=== PATIENT | male | born 1985 | race African-American/Black ===

== ENCOUNTER 2022-09-22 09:03 | Emergency (ER) | payer OTHER, SELFPAY ==
[2022-09-22 09:18] VITALS: PULSE 86; O2SAT 100
[2022-09-22 09:20] VITALS: BP 124/74; PULSE 82; RESP 16; TEMP 36.7; O2SAT 100; BMI 30.2
[2022-09-22 09:30] VITALS: BP 121/76; PULSE 84; O2SAT 100
[2022-09-22 10:00] VITALS: BP 122/60; PULSE 79; O2SAT 100
[2022-09-22 10:12] LABS: Add Manual Diff / Slide Review NO; Basophils Absolute Auto 0 /uL (0-100); Basophils Percent Auto 0.4 % (0-2); Eosinophils Absolute Auto 100 /uL (0-450); Eosinophils Percent Auto 1.1 % (2-4); Hematocrit 26.6 % (41-53); Hemoglobin 9.4 g/dL (13.5-17.5); Lymphocytes Absolute Auto 3100 /uL (1100-4500); Lymphocytes Percent Auto 31.9 % (25-40); Mean Corpuscular HGB Conc 35.4 % (30-36); Mean Corpuscular Volume 84.7 fL (80-100); Monocytes Absolute Auto 700 /uL (0-900); Monocytes Percent Auto 6.9 % (3-14); Neutrophils Absolute Auto 5800 /uL (1500-7000); Neutrophils Percent Auto 59.7 % (50-75); Platelet Count 188 X10^3/uL (150-400); Red Blood Cell Count 3.15 X10^6/uL (4.5-5.9); Red Cell Distribution Width 13.9 % (11.6-14.8); White Blood Cell Count 9.8 X10^3/uL (4.5-11.0)
[2022-09-22 10:17] LABS: INR 1.1 (0.9-1.3); Prothrombin Time 12.5 SECONDS (10.1-12.7)
[2022-09-22 10:20] LABS: PTT Partial Thromboplastin Tim 24 SECONDS (26-36)
[2022-09-22 10:22] LABS: Alanine Aminotransferase 32 IU/L (<50); Albumin 4.2 g/dL (3.5-5.0); Albumin Globulin Ratio 1.6 (1.0-2.8); Alkaline Phosphatase 39 U/L (38-126); Aspartate Aminotransferase 39 IU/L (17-59); BUN Creatinine Ratio 16.5 (6-22); Bilirubin Total 0.9 mg/dL (0.2-1.3); Blood Urea Nitrogen 14 mg/dL (9-20); Calcium 9.1 mg/dL (8.4-10.2); Carbon Dioxide 28 mmol/L (22-32); Chloride 101 mmol/L (98-107); Estimated Glomerular Filt Rate > 60 mL/min (>60); Globulin 2.7 g/dL (1.7-4.1); Glucose 98 mg/dL (70-100); HEMOLYSIS < 15 (0-50); Potassium 3.7 mmol/L (3.4-5.1); Sodium 136 mmol/L (137-145); Total Protein 6.9 g/dL (6.3-8.2)
[2022-09-22 10:30] VITALS: BP 110/65; PULSE 83; O2SAT 100
[2022-09-22] MEDS: PANTOPRAZOLE 40 MG VIAL 80 MG IV (10:37)
--- NOTE | 2022-09-22 11:07 | ED.GIBLEED ---
HPI - GI Bleed General Chief complaint: GI Bleed Stated complaint: gi bleed Time Seen by Provider: 09/22/22 11:07 Source: patient Mode of arrival: Ambulatory Limitations: no limitations History of Present Illness HPI Narrative: This is a 37-year-old male with no past medical history is had a prior hernia repair in 2016. Patient presents with complaint of black formed stools for the past 3 days. He states he is had 4 stools total. Patient states he has not had any prior episodes similar to this in the past. He denies fevers or chills. He felt a little lightheaded yesterday. He states not today. No nausea no vomiting, no abdominal back or flank pain. He denies any diarrheal stools. No bloody stools. He states stools are black. He denies any abdominal pain. Patient states he rarely takes ibuprofen, he does take a multivitamin without iron. He does not take aspirin or other blood thinners. He denies other NSAIDs. Denies any other past medical issues. States only hernia repair in 2016 as his only surgery. No prior EGD or colonoscopy. Tobacco, occasional alcohol, no illicit. Patient is seen at the [facility] [place], and received primary care through them. Patient states he is never been told that he is anemic in the past. Patient has a photo was his formed stools that is clearly black. He denies any Pepto Bismol or other qviv-zto-ecxidfy medications. Related Data Previous Rx's Medication Instructions Recorded esomeprazole magnesium 40 mg 40 mg PO Q24H 42 days #42 caps 09/22/22 capsule,delayed release (Nexium) Allergies Allergy/AdvReac Type Severity Reaction Status Date / Time No Known Drug Allergies Allergy Verified 09/22/22 09:20 Review of Systems Review of Systems ROS Unobtainable: All systems reviewed & are unremarkable except as noted in HPI and below Patient History Social History Smoking Status: Never smoker Smoking Status: Never smoker alcohol intake frequency: holidays/special occasions only Substance Use Type: does not use Exam Narrative Exam Narrative: GENERAL: Alert and oriented x three, male in mild distress. HEENT: Head normocephalic, atraumatic, EOMI, pupils reactive, no scleral icterus, face symmetric, moist mucous membranes NECK: Supple, full range of motion CARDIOVASCULAR: Regular rate and rhythm without murmurs, rubs or gallops. RESPIRATORY: Breath sounds equal bilaterally, no wheezes rales or rhonchi. ABDOMEN: Soft, nontender. Normoactive bowel sounds all 4 quadrants. No guarding or rebound, rigidity, no mass : No CVA tenderness EXTREMITIES: Normal range of motion, no clubbing or edema. Neurovascularly intact NEUROLOGICAL: Cranial nerves II through XII grossly intact. Moving all extremities SKIN: Warm, dry, no petechiae, no rashes or lesions. Initial Vital Signs Initial Vital Signs: Vital Signs Pulse Rate 86 09/22/22 09:18 Pulse Oximetry 100 09/22/22 09:18 Course Orders Ordered: ED Orders 09/22/22 09:23 EKG-12 Lead Stat 09/22/22 09:50 Complete Blood Count AUTO DIFF Stat Comprehensive Metabolic Panel Stat PTT Partial Thromboplastin Parmjit Stat Prothrombin Time INR Stat Type and Screen Stat 09/22/22 11:46 Consult to General Surgery Stat Discontinued Medications Ondansetron HCl (Ondansetron 4 Mg/2 Ml Inj) 4 mg IV NOW PRN PRN Reason: Nausea And Vomiting Ondansetron HCl (Ondansetron 4 Mg Odt) 4 mg SL NOW PRN PRN Reason: Nausea And Vomiting Pantoprazole Sodium (Pantoprazole 40 Mg Vial) 80 mg IV NOW ONE Stop: 09/22/22 09:24 Last Admin: 09/22/22 10:37 Dose: 80 mg Documented By: NR Vital Signs Vital signs: Vital Signs - 8 hr 09/22/22 10:30 09/22/22 10:30 09/22/22 11:49 Pulse Rate 83 Respiratory Rate Blood Pressure 110/65 110/64 Pulse Oximetry 100 Oxygen Delivery Method 09/22/22 11:49 Pulse Rate 80 Respiratory Rate 16 Blood Pressure Pulse Oximetry 100 Oxygen Delivery Method Room Air MDM - GI Bleed Lab Data 09/22/22 09:50 09/22/22 09:50 Labs: Lab Results 09/22/22 09/22/22 09/22/22 Range/Units 09:50 09:50 09:50 WBC 9.8 (4.5-11.0) X10^3/uL RBC 3.15 L (4.5-5.9) X10^6/uL Hgb 9.4 L (13.5-17.5) g/dL Hct 26.6 L (41-53) % MCV 84.7 (80-100) fL MCH 30.0 (26-34) PG MCHC 35.4 (30-36) % RDW 13.9 (11.6-14.8) % Plt Count 188 (150-400) X10^3/uL Neut % (Auto) 59.7 (50-75) % Lymph % (Auto) 31.9 (25-40) % Upson % (Auto) 6.9 (3-14) % Eos % (Auto) 1.1 L (2-4) % Baso % (Auto) 0.4 (0-2) % Neut # (Auto) 5800 (6773-8531) /uL Lymph # (Auto) 3100 (1729-4731) /uL Upson # (Auto) 700 (0-900) /uL Eos # (Auto) 100 (0-450) /uL Baso # (Auto) 0 (0-100) /uL PT 12.5 (10.1-12.7) SECONDS INR 1.1 (0.9-1.3) APTT 24 L (26-36) SECONDS Sodium 136 L (137-145) mmol/L Potassium 3.7 (3.4-5.1) mmol/L Chloride 101 (98-107) mmol/L Carbon Dioxide 28 (22-32) mmol/L BUN 14 (9-20) mg/dL Creatinine 0.85 (0.66-1.25) mg/dL Estimated GFR > 60 (>60) mL/min BUN/Creatinine Ratio 16.5 (6-22) Glucose 98 (70-100) mg/dL Calcium 9.1 (8.4-10.2) mg/dL Total Bilirubin 0.9 (0.2-1.3) mg/dL AST 39 (17-59) IU/L ALT 32 (<50) IU/L Alkaline Phosphatase 39 (38-126) U/L Total Protein 6.9 (6.3-8.2) g/dL Albumin 4.2 (3.5-5.0) g/dL Globulin 2.7 (1.7-4.1) g/dL Albumin/Globulin Ratio 1.6 (1.0-2.8) Blood Type Antibody Screen 09/22/22 Range/Units 09:50 WBC (4.5-11.0) X10^3/uL RBC (4.5-5.9) X10^6/uL Hgb (13.5-17.5) g/dL Hct (41-53) % MCV (80-100) fL MCH (26-34) PG MCHC (30-36) % RDW (11.6-14.8) % Plt Count (150-400) X10^3/uL Neut % (Auto) (50-75) % Lymph % (Auto) (25-40) % Upson % (Auto) (3-14) % Eos % (Auto) (2-4) % Baso % (Auto) (0-2) % Neut # (Auto) (6050-1363) /uL Lymph # (Auto) (6541-1661) /uL Upson # (Auto) (0-900) /uL Eos # (Auto) (0-450) /uL Baso # (Auto) (0-100) /uL PT (10.1-12.7) SECONDS INR (0.9-1.3) APTT (26-36) SECONDS Sodium (137-145) mmol/L Potassium (3.4-5.1) mmol/L Chloride (98-107) mmol/L Carbon Dioxide (22-32) mmol/L BUN (9-20) mg/dL Creatinine (0.66-1.25) mg/dL Estimated GFR (>60) mL/min BUN/Creatinine Ratio (6-22) Glucose (70-100) mg/dL Calcium (8.4-10.2) mg/dL Total Bilirubin (0.2-1.3) mg/dL AST (17-59) IU/L ALT (<50) IU/L Alkaline Phosphatase (38-126) U/L Total Protein (6.3-8.2) g/dL Albumin (3.5-5.0) g/dL Globulin (1.7-4.1) g/dL Albumin/Globulin Ratio (1.0-2.8) Blood Type A Negative Antibody Screen Negative Urine Dip Bedside Urine Glucose Negative Bedside Urine Bilirubin - Negative Bedside Urine Ketone - Negative Urine Specific Britton 1.005 Bedside Urine Occult Blood - Negative Bedside Urine pH 7.5 Bedside Urine Protein - Negative Bedside Urine Urobilinogen - Negative Bedside Urine Nitrite - Negative Bedside Urine Leukocytes - Negative Esterase ECG Data Attestation: I personally reviewed and interpreted this ECG as follows: Prior ECG tracings: not available for review Interpretation: Normal sinus rhythm rate of 78 AK 160, QRS 82 and QTC 433. No acute ST elevation appreciated. Nonspecific. MDM Narrative Medical decision making narrative: This is a 37-year-old male who presents with well formed black stools for the past 4 days. Patient labs do show anemia with a hemoglobin of 9.4 and a crit of 26, it is not microcytic, patient's platelets are normal, normal white cells. BUN is not elevated renal function is normal with normal LFTs and electrolytes. Negative point of care urine. Patient's vitals are stable he is standing ambulating without issue. [place] appropriate for discharge home but with close follow-up. Plan to start PPI with Nexium once daily, add iron to his multivitamin. Patient is to call to set up EGD and if necessary colonoscopy. I spoke with Dr. Doshi with General surgery, who is happy to see see the patient. Discharge Plan Departure Patient Disposition: Home Clinical Impression: GI bleed, Anemia Instructions: Gastrointestinal Bleeding Activity Restrictions/Additional Instructions: Please follow-up for recheck. Your blood does show anemia today. Talk with your physician to have your levels rechecked in the next week. Your hemoglobin today is 9.4 Please call general surgery today or 1st thing in the morning to set up follow-up for EGD for GI bleeding/melena or black stools. Avoid NSAIDs such as ibuprofen, naproxen, Alleve and aspirin until cleared by your physician Also recommend they follow up for EGD and/or colonoscopy to evaluate for potential source of bleeding. Please add iron to your multivitamin. Take Nexium 1 tablet daily for at least 6 weeks. Prescription sent to [facility] in [place] Please return for fevers, lightheadedness or passing out, new abdominal back or flank pain, vomiting, persistent black or bloody stools, lightheadedness or passing out or other new or concerning changes. Prescriptions: New esomeprazole magnesium [Nexium] 40 mg capsule,delayed release(DR/EC) 40 mg PO Q24H 42 Days Qty: 42 0RF Referrals: Dawson Doshi MD [Physician] - Andressa Paul MD [Physician] - Provider,Stan FERNANDEZ [Primary Care Provider] - Stand Alone Forms: Patient Portal/API
[2022-09-22 11:49] VITALS: BP 110/64; PULSE 80; RESP 16; O2SAT 100
== END 2022-09-22 11:54 | disposition home or self-care (01) ==
PROVIDERS: Emergency Provider Emergency Medicine
DX: K92.2 Gastrointestinal hemorrhage, unspecified (principal); D64.9 Anemia, unspecified; R79.89 Other specified abnormal findings of blood chemistry
CPT/HCPCS: 36415; 80053; 81003; 85025; 85610; 85730; 86850; 86900; 86901; 93005; 93010; 96374; 99284; C9113

== ENCOUNTER 2022-09-25 19:21 | Observation (INO) | payer OTHER, SELFPAY ==
[2022-09-25] VITALS (7 sets, daily range): BP systolic 110–121; BP diastolic 60–66; PULSE 71–82; RESP 14–23; TEMP 36.5–36.7; O2SAT 99–100; BMI 29.0; BMI 28.8
[2022-09-25 19:47] LABS: Add Manual Diff / Slide Review NO; Basophils Absolute Auto 100 /uL (0-100); Basophils Percent Auto 0.9 % (0-2); Eosinophils Absolute Auto 100 /uL (0-450); Eosinophils Percent Auto 1.5 % (2-4); Hematocrit 24.7 % (41-53); Hemoglobin 8.5 g/dL (13.5-17.5); Lymphocytes Absolute Auto 2200 /uL (1100-4500); Mean Corpuscular HGB Conc 34.4 % (30-36); Mean Corpuscular Hemoglobin 29.4 PG (26-34); Mean Corpuscular Volume 85.5 fL (80-100); Monocytes Absolute Auto 600 /uL (0-900); Neutrophils Absolute Auto 3500 /uL (1500-7000); Neutrophils Percent Auto 54.6 % (50-75); Platelet Count 222 X10^3/uL (150-400); Red Blood Cell Count 2.89 X10^6/uL (4.5-5.9); White Blood Cell Count 6.4 X10^3/uL (4.5-11.0)
[2022-09-25 19:54] LABS: Prothrombin Time 11.5 SECONDS (10.1-12.7)
[2022-09-25 19:56] LABS: PTT Partial Thromboplastin Tim 24 SECONDS (26-36)
[2022-09-25] MEDS: PANTOPRAZOLE 40 MG VIAL 80 MG IV (20:06)
[2022-09-25 20:11] LABS: Alanine Aminotransferase 35 IU/L (<50); Albumin 3.8 g/dL (3.5-5.0); Albumin Globulin Ratio 1.6 (1.0-2.8); Alkaline Phosphatase 37 U/L (38-126); Aspartate Aminotransferase 34 IU/L (17-59); BUN Creatinine Ratio 11.8 (6-22); Bilirubin Total 0.6 mg/dL (0.2-1.3); Blood Urea Nitrogen 10 mg/dL (9-20); Calcium 8.7 mg/dL (8.4-10.2); Carbon Dioxide 25 mmol/L (22-32); Chloride 106 mmol/L (98-107); Estimated Glomerular Filt Rate > 60 mL/min (>60); Globulin 2.4 g/dL (1.7-4.1); Glucose 96 mg/dL (70-100); HEMOLYSIS < 15 (0-50); Potassium 3.8 mmol/L (3.4-5.1); Sodium 139 mmol/L (137-145); Total Protein 6.2 g/dL (6.3-8.2)
--- NOTE | 2022-09-25 20:11 | ED_ITS ---
HPI - GI Bleed General Chief complaint: GI Bleed Stated complaint: Dizzy, GI bleed last week Time Seen by Provider: 09/25/22 19:49 Source: patient Mode of arrival: Ambulatory Limitations: no limitations History of Present Illness HPI Narrative: Patient is an otherwise healthy 37-year-old male who was seen here in the emergency department a couple days ago for rectal bleeding. Had labs drawn. Was slightly anemic. Unremarkable vital signs. Was sent home on a PPI and instructions to follow-up with general surgery for colonoscopy. He states since he was discharged from the hospital he actually did not have another bowel movement until today which she states was fairly large and was also dark red. He stated that this afternoon he became lightheaded. No chest pain. No abdominal pain. No recent travel. No recent antibiotics. Does not drink alcohol. Does not use anti-inflammatories. No hematuria. Related Data Home Medications Medication Instructions Recorded Confirmed omeprazole 20 mg capsule,delayed 20 mg PO BID 09/26/22 09/26/22 release Allergies Allergy/AdvReac Type Severity Reaction Status Date / Time No Known Drug Allergies Allergy Verified 09/25/22 19:28 Review of Systems Review of Systems ROS Unobtainable: All systems reviewed & are unremarkable except as noted in HPI and below Patient History Medical History History of abdominal hernia Overweight (BMI 25.0-29.9) Surgical History (Updated 09/25/22 @ 23:54 by ABAD Robledo) Hx of hernia repair Family History (Updated 09/25/22 @ 23:55 by ABAD Robledo) Grandmother Diabetes mellitus Social History household members: spouse and children Smoking Status: Never smoker alcohol intake: current substance use type: does not use Smoking Status: Never smoker alcohol intake frequency: holidays/special occasions only Substance Use Type: does not use Exam Initial Vital Signs Initial Vital Signs: Vital Signs Temperature 98.1 F 09/25/22 19:23 Pulse Rate 78 09/25/22 19:23 Respiratory Rate 15 09/25/22 19:23 Blood Pressure 121/60 09/25/22 19:23 Pulse Oximetry 100 09/25/22 19:23 Oxygen Delivery Method Room Air 09/25/22 19:23 Const General: cooperative, comfortable and No ill appearing [facility] Head: normal to inspection and normocephalic Resp Effort & Inspection: normal respiratory effort Auscultation: clear to auscultation bilaterally Cardio Rate: regular rate Rhythm: regular rhythm GI Inspection: normal to inspection Palpation: soft and No tender Skin General: no rashes or lesions noted Neuro General: patient alert, patient awake, patient oriented x3 and moves all extremities Extrem General: normal to inspection and capillary refill normal Course Orders Ordered: ED Orders 09/25/22 19:27 EKG-12 Lead Stat 09/25/22 19:35 Complete Blood Count AUTO DIFF Stat Comprehensive Metabolic Panel Stat PTT Partial Thromboplastin Parmjit Stat Prothrombin Time INR Stat Type and Screen Stat 09/25/22 21:10 COVID19 -Nasal RAPID Stat Acetaminophen (Acetaminophen 325 Mg Tablet) 650 mg PO Q6H PRN PRN Reason: Fever/Mild Pain (1-3) Naloxone HCl (Naloxone 0.4 Mg/Ml Vial) 0.2 mg IV Q2MIN PRN PRN Reason: Opiate Reversal Ondansetron HCl (Ondansetron 4 Mg/2 Ml Inj) 4 mg IV Q4HR PRN PRN Reason: Nausea And Vomiting Pantoprazole Sodium (Pantoprazole 40 Mg Vial) 40 mg IV BID TANESHA Discontinued Medications Ondansetron HCl (Ondansetron 4 Mg/2 Ml Inj) 4 mg IV NOW PRN PRN Reason: Nausea And Vomiting Pantoprazole Sodium (Pantoprazole 40 Mg Vial) 80 mg IV NOW ONE Stop: 09/25/22 19:28 Last Admin: 09/25/22 20:06 Dose: 80 mg Documented By: SILVINA Polyethylene Glycol/Electrolytes ([id number]/Sod Sulf,Bicarb,Cl/Kcl 4,000 Ml Solution) 4,000 ml PO NOW ONE Stop: 09/26/22 00:03 Last Admin: 09/26/22 00:38 Dose: 4,000 ml Documented By: KAI Vital Signs Vital signs: Vital Signs - 8 hr 09/25/22 19:23 09/25/22 19:26 09/25/22 19:30 Temperature 98.1 F Pulse Rate 78 82 76 Respiratory Rate 15 16 23 Blood Pressure 121/60 Pulse Oximetry 100 100 100 Oxygen Delivery Method Room Air 09/25/22 20:00 09/25/22 20:30 09/25/22 21:00 Temperature Pulse Rate 71 74 71 Respiratory Rate 18 19 19 Blood Pressure Pulse Oximetry 100 100 99 Oxygen Delivery Method MDM - GI Bleed Lab Data Attestation: I reviewed the patient's lab results. 09/25/22 19:35 09/25/22 19:35 Labs: Lab Results 09/25/22 09/25/22 09/25/22 Range/Units 19:35 19:35 19:35 WBC 6.4 (4.5-11.0) X10^3/uL RBC 2.89 L (4.5-5.9) X10^6/uL Hgb 8.5 L (13.5-17.5) g/dL Hct 24.7 L (41-53) % MCV 85.5 (80-100) fL MCH 29.4 (26-34) PG MCHC 34.4 (30-36) % RDW 15.0 H (11.6-14.8) % Plt Count 222 (150-400) X10^3/uL Neut % (Auto) 54.6 (50-75) % Lymph % (Auto) 34.0 (25-40) % Moore % (Auto) 9.0 (3-14) % Eos % (Auto) 1.5 L (2-4) % Baso % (Auto) 0.9 (0-2) % Neut # (Auto) 3500 (2626-7579) /uL Lymph # (Auto) 2200 (8878-6841) /uL Moore # (Auto) 600 (0-900) /uL Eos # (Auto) 100 (0-450) /uL Baso # (Auto) 100 (0-100) /uL PT 11.5 (10.1-12.7) SECONDS INR 1.0 (0.9-1.3) APTT 24 L (26-36) SECONDS Sodium 139 (137-145) mmol/L Potassium 3.8 (3.4-5.1) mmol/L Chloride 106 (98-107) mmol/L Carbon Dioxide 25 (22-32) mmol/L BUN 10 (9-20) mg/dL Creatinine 0.85 (0.66-1.25) mg/dL Estimated GFR > 60 (>60) mL/min BUN/Creatinine Ratio 11.8 (6-22) Glucose 96 (70-100) mg/dL Calcium 8.7 (8.4-10.2) mg/dL Total Bilirubin 0.6 (0.2-1.3) mg/dL AST 34 (17-59) IU/L ALT 35 (<50) IU/L Alkaline Phosphatase 37 L (38-126) U/L Total Protein 6.2 L (6.3-8.2) g/dL Albumin 3.8 (3.5-5.0) g/dL Globulin 2.4 (1.7-4.1) g/dL Albumin/Globulin Ratio 1.6 (1.0-2.8) SARS-CoV-2 (PCR) (Negative) Blood Type Antibody Screen 09/25/22 09/25/22 Range/Units 19:35 21:10 WBC (4.5-11.0) X10^3/uL RBC (4.5-5.9) X10^6/uL Hgb (13.5-17.5) g/dL Hct (41-53) % MCV (80-100) fL MCH (26-34) PG MCHC (30-36) % RDW (11.6-14.8) % Plt Count (150-400) X10^3/uL Neut % (Auto) (50-75) % Lymph % (Auto) (25-40) % Moore % (Auto) (3-14) % Eos % (Auto) (2-4) % Baso % (Auto) (0-2) % Neut # (Auto) (9022-2014) /uL Lymph # (Auto) (1670-7226) /uL Moore # (Auto) (0-900) /uL Eos # (Auto) (0-450) /uL Baso # (Auto) (0-100) /uL PT (10.1-12.7) SECONDS INR (0.9-1.3) APTT (26-36) SECONDS Sodium (137-145) mmol/L Potassium (3.4-5.1) mmol/L Chloride (98-107) mmol/L Carbon Dioxide (22-32) mmol/L BUN (9-20) mg/dL Creatinine (0.66-1.25) mg/dL Estimated GFR (>60) mL/min BUN/Creatinine Ratio (6-22) Glucose (70-100) mg/dL Calcium (8.4-10.2) mg/dL Total Bilirubin (0.2-1.3) mg/dL AST (17-59) IU/L ALT (<50) IU/L Alkaline Phosphatase (38-126) U/L Total Protein (6.3-8.2) g/dL Albumin (3.5-5.0) g/dL Globulin (1.7-4.1) g/dL Albumin/Globulin Ratio (1.0-2.8) SARS-CoV-2 (PCR) Negative (Negative) Blood Type A Negative Antibody Screen Negative ECG Data Attestation: I personally reviewed and interpreted this ECG as follows: Interpretation: Sinus rhythm Ventricular rate is 75 is normal axis Normal QRS Normal QTC No ST T wave changes MDM Narrative Medical decision making narrative: Patient is nontoxic appearing. His vital signs are unremarkable. Patient's blood counts today are slightly lower compared to a couple days ago. He is having continued rectal bleeding. Was also somewhat lightheaded today. No indication for emergent blood transfusion. Discussed the case with Dr. Contreras who stated that he would follow along with the patient after admission to the hospital. Then discuss the case with in [facility] provider who will admit for further evaluation and treatment. Discussed the need for evaluation with the patient he expressed understanding and agreement. Discharge Plan Departure Patient Disposition: Admitted As Inpatient Clinical Impression: GI bleed Admit Date/Time: 09/25/22 22:30 Admit Provider: Kristin Jacobs
[2022-09-25 21:39] LABS: COVID19 -Nasal RAPID Negative (Negative)
--- NOTE | 2022-09-25 22:52 | P.HP_ITS ---
History of Present Illness History of Present Illness Date Patient Seen: 09/25/22 Time Patient Seen: 22:52 Chief complaint: Lower GI Bleed Narrative: Samm Pollard is a healthy 37-year-old male with medical history of only a abdominal hernia repair in 2016, takes no medications is an active [employer] member who presented to the ED on 09/22 for rectal bleeding given PPI and instructed to follow up outpatient with GI-H&H 01/26. Patient had a large BM with tara bright red blood today, returned the ED H&H 12/24. Guaiac positive for tara blood. Patient has had a total of 2 tara formed bowel movements over the past 72 hours. Denies any medical history of GI issues, bleeding, obstruction, or diarrhea. Complains of epigastric abdominal pain and abdominal distention within the last 24 hours, dizziness while lying down worsens with standing, and shortness of breath with activity. On admit patient denies chest pain, shortness in breath, headache, changes in vision, difficulty swallowing, speech impairment, weakness, numbness, tingling, difficulty with ambulation, recent falls, head injury, LOC, fever, body aches, chills, cough, recent exposure to illness, nausea, vomiting, urinary incontinence/retention, dysuria, frequency, urgency, hematuria,constipation, incontinence, rashes, recent changes to medication, illness, injury, or trauma. At the time of admit patient's vitals were stable, normotensive, h HGB 8.5/HCT 24.7, the rest of patient's labs are all WNL COVID is negative, patient is typed and crossed A negative blood type. Patient admitted for observation for anemia secondary to lower GI bleed general surgery will take for colonoscopy tomorrow. [facility] Medical History (Updated 09/25/22 @ 23:54 by ABAD Robledo) History of abdominal hernia Overweight (BMI 25.0-29.9) Surgical History (Updated 09/25/22 @ 23:54 by ABAD Robledo) Hx of hernia repair Family History (Updated 09/25/22 @ 23:55 by ABAD Robledo) Grandmother Diabetes mellitus Social History (Updated 09/25/22 @ 22:57 by OSCAR Robledo-COLLINS) Smoking Status: Never smoker alcohol intake: never substance use type: does not use Meds Home Medications and Allergies Home Medications Medication Instructions Recorded Confirmed Type esomeprazole magnesium 40 mg 40 mg PO Q24H 42 days #42 caps 09/22/22 Rx capsule,delayed release (Nexium) Allergies Allergy/AdvReac Type Severity Reaction Status Date / Time No Known Drug Allergies Allergy Verified 09/25/22 19:28 Review of Systems Review of Systems Narrative: All 12 point systems reviewed with the patient and are negative except otherwise documented. Exam Vital Signs (past 8 hours): - 09/25/22 19:23 09/25/22 19:26 09/25/22 19:30 Temperature 98.1 F Pulse Rate 78 82 76 Respiratory Rate 15 16 23 Blood Pressure 121/60 Pulse Oximetry 100 100 100 Oxygen Delivery Method Room Air 09/25/22 20:00 09/25/22 20:30 09/25/22 21:00 Temperature Pulse Rate 71 74 71 Respiratory Rate 18 19 19 Blood Pressure Pulse Oximetry 100 100 99 Oxygen Delivery Method Oxygen Delivery Method Room Air Narrative Exam Narrative: General: Patient is a well-developed, well-nourished, states that he continues to feel dizzy while lying in bed, in no distress and stable at this time. HEENT: Normocephalic, atraumatic, extraocular muscles intact, oral pharynx is c lear and mucous membranes are moist. Neck is supple and symmetric, trachea is midline, no adenopathy, no thyroid enlargement, nontender, no masses palpated. Negative for JVD Chest: Normal AP diameter and contour without kyphoscoliosis, no nasal flaring, retractions, or tachypneic labored Lungs: Auscultation of all lung george are clear without adventitious sounds, wheezes, rhonchi, or rales. Cardio: S1 & S2 with regular rate and rhythm without murmur, rubs, or gallops, no carotid bruit, no cardiac pulsations present. Abdomen: Soft distended, mild to moderate discomfort with palpation to epigastric. Bowel sounds are present in all 4 quadrants without guarding or rebound, no CVA tenderness. Musculoskeletal: Muscle strength and tone are equal within normal limits, no deformity, crepitus, effusions, cyanosis, clubbing or edema present. Full range of motion intact radial and pedal pulses are normal. Skin: Warm dry and intact without rashes, ulcerations or petechiae. Neuro: Alert and orientated x3, strength is +5/5 in all extremities, sensation to touch intact, no gross deficits noted of cranial nerves. Psych: Patient has a well-kept appearance, appropriate affect, mental status attitude thought context and judgment are appropriate for age. Objective Labs 09/25/22 19:35 09/25/22 19:35 Labs: Laboratory Results - last 24 hr 09/25/22 09/25/22 09/25/22 19:35 19:35 19:35 WBC 6.4 RBC 2.89 L Hgb 8.5 L Hct 24.7 L MCV 85.5 MCH 29.4 MCHC 34.4 RDW 15.0 H Plt Count 222 Neut % (Auto) 54.6 Lymph % (Auto) 34.0 Culberson % (Auto) 9.0 Eos % (Auto) 1.5 L Baso % (Auto) 0.9 Neut # (Auto) 3500 Lymph # (Auto) 2200 Culberson # (Auto) 600 Eos # (Auto) 100 Baso # (Auto) 100 PT 11.5 INR 1.0 APTT 24 L Sodium 139 Potassium 3.8 Chloride 106 Carbon Dioxide 25 BUN 10 Creatinine 0.85 Estimated GFR > 60 BUN/Creatinine Ratio 11.8 Glucose 96 Calcium 8.7 Total Bilirubin 0.6 AST 34 ALT 35 Alkaline Phosphatase 37 L Total Protein 6.2 L Albumin 3.8 Globulin 2.4 Albumin/Globulin Ratio 1.6 SARS-CoV-2 (PCR) Blood Type Antibody Screen 09/25/22 09/25/22 19:35 21:10 WBC RBC Hgb Hct MCV MCH MCHC RDW Plt Count Neut % (Auto) Lymph % (Auto) Culberson % (Auto) Eos % (Auto) Baso % (Auto) Neut # (Auto) Lymph # (Auto) Culberson # (Auto) Eos # (Auto) Baso # (Auto) PT INR APTT Sodium Potassium Chloride Carbon Dioxide BUN Creatinine Estimated GFR BUN/Creatinine Ratio Glucose Calcium Total Bilirubin AST ALT Alkaline Phosphatase Total Protein Albumin Globulin Albumin/Globulin Ratio SARS-CoV-2 (PCR) Negative Blood Type A Negative Antibody Screen Negative Assessment & Plan Assessment & Plan narrative: Samm Pollard is a healthy 37-year-old male with no previous medical history, takes no medications is an active [employer] member admitted for observation and colonoscopy for anemia secondary to lower GI bleed. Anemia, blood loss, secondary to lower GI bleed, acute, present on admission * 09/22/2022: H&H 01/26. Today ED: H&H 12/24 * Moderate epigastric pain with palpation, and moderate distended abdomen on exam. * Abdominal ultrasound ordered for tomorrow * Patient is normotensive and stable * Protonix IV 80 given in ED, 40 b.i.d. * NPO at midnight for colonoscopy * Consult for Dr. Contreras, was notified by ED * Monitor for bleeding, orthostatics q.4h while awake only * Colonoscopy tomorrow-bowel prep per Dr. Contreras's recommendation. Overweight, moderate, acute on chronic, present on admission * BMI 29.1 * dietary consult ordered regarding nutritional education and information for dietary, lifestyle, exercise, and weight changes. * the patient is at much higher risk for medical and surgical complications due to obesity as it relates to chronic illnesses:, and acute illness. The patient's obesity increases the difficulty and complexity of medical and/or surgical interventions, management and increases the chances of poor outcome such as morbidity and mortality as well as impaired wound healing. Code status: Full Surrogate decision maker: Juli spouse COVID PCR: Negative DVT/VTE prophylaxis: Medication held due to pending colonoscopy, SCDs only Disposition: Estimated length of stay in not to exceed 2 midnights I have utilized all available immediate resources to obtain, update, or review the patient's current medications. I confirmed that the patient's advanced care plan is present, Code status is documented and/or surrogate decision maker is listed in the patient's medical record. I have personally reviewed patient's chart notes from PCP, specialists, diagnostic imaging, and laboratory results.
[2022-09-26] VITALS (11 sets, daily range): BP systolic 74–114; BP diastolic 32–73; PULSE 63–777; RESP 14–21; TEMP 36.3–36.7; O2SAT 100
--- NOTE | 2022-09-26 | PATH_ITS ---
[facility] Accession Number: [id number] No. of containers..01 Tissue . 01 Material submitted: . stomach - ANTRUM BIOPSY . 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 Negative for Helicobacter by immunohistochemistry. Negative for intestinal metaplasia. Negative for dysplasia and malignancy. V 10/05/2022 1556 Local . 01 Electronically signed: . Mame Zaldivar MD, Pathologist NPI- [id number] . 01 Gross description: . ANTRUM BIOPSY: Received in formalin are multiple fragment(s) of hoover, soft tissue measuring 1.5 x 0.2 x 0.2 cm in aggregate submitted entirely in 1 cassette(s) /[facility] 09/30/2022 1446 Local . 01 Microscopic: . An immunohistochemical stain was performed to evaluate for Helicobacter organisms and is negative. The control stain showed appropriate reactivity. . * This test was developed and its performance characteristics determined by [facility]. It has not been cleared or approved by the U.S. Food and Drug Administration. The FDA has determined that such clearance or approval is not necessary. This test is used for clinical purposes. It should not be regarded as investigational or for research. . 01 Pathologist provided ICD-10: R10.9 . 01 CPT . 452048, Y78065 Specimen Comment: A courtesy copy of this report has been sent to [phone] Performed at: 01 [facility] [address] [place] [address], [place], [place] [id number] MD Otto Terry MD Phone: [phone]
--- NOTE | 2022-09-26 00:17 | PC.ADMIT ---
[address] [facility] Admission Note: The patient,Samm Pollard,37 y/o, was given written information regarding hospital policies, unit procedures and contact persons. Patient's smoking status: Never smoker. Vital Signs - 8 hr 09/25/22 19:23 09/25/22 19:26 09/25/22 19:30 Temperature 98.1 F Pulse Rate 78 82 76 Respiratory Rate 15 16 23 Blood Pressure 121/60 Pulse Oximetry 100 100 100 Oxygen Delivery Method Room Air Oxygen Flow Rate 09/25/22 20:00 09/25/22 20:30 09/25/22 21:00 Temperature Pulse Rate 71 74 71 Respiratory Rate 18 19 19 Blood Pressure Pulse Oximetry 100 100 99 Oxygen Delivery Method Oxygen Flow Rate 09/25/22 23:30 09/26/22 00:15 Temperature 97.7 F Pulse Rate 73 Respiratory Rate 14 Blood Pressure 110/66 Pulse Oximetry 100 Oxygen Delivery Method Room Air Oxygen Flow Rate 0 Patient admitted to room 211 from ER per wheelchair at 2325. Is alert and oriented. Breath sounds CTA with RA sat of 100%. HRR w/telemetry reading of SR. Does endorse some mild dizziness when up. Denies nausea. Tenderness over epigastric area with palpation but denies pain. Abdomen is soft and mildly distended. Denies dysuria, frequency or urgency with urination. Is able to move himself in bed. Due to dizziness patient instructed to call for staff assist when getting out of bed; verbalizes understanding. HOB elevated to 15 degrees per order. Instructed in NPO status after 0000 except for bowel prep which was ordered by Dr. Contreras. Fall risk score is low. Oriented to call light and bed controls.
[2022-09-26] MEDS: PEG3350/SOD SULF,BICARB,CL/KCL 4,000 ML SOLUTION 4000 ML PO (00:38)
[2022-09-26 05:43] LABS: Add Manual Diff / Slide Review NO; Basophils Absolute Auto 0 /uL (0-100); Basophils Percent Auto 0.4 % (0-2); Eosinophils Absolute Auto 100 /uL (0-450); Eosinophils Percent Auto 1.6 % (2-4); Hematocrit 24.3 % (41-53); Hemoglobin 8.4 g/dL (13.5-17.5); Lymphocytes Absolute Auto 1500 /uL (1100-4500); Lymphocytes Percent Auto 26.2 % (25-40); Mean Corpuscular HGB Conc 34.5 % (30-36); Mean Corpuscular Hemoglobin 29.6 PG (26-34); Mean Corpuscular Volume 85.9 fL (80-100); Monocytes Absolute Auto 600 /uL (0-900); Monocytes Percent Auto 9.5 % (3-14); Neutrophils Absolute Auto 3700 /uL (1500-7000); Neutrophils Percent Auto 62.3 % (50-75); Platelet Count 224 X10^3/uL (150-400); Red Blood Cell Count 2.84 X10^6/uL (4.5-5.9); Red Cell Distribution Width 14.9 % (11.6-14.8); White Blood Cell Count 5.9 X10^3/uL (4.5-11.0)
[2022-09-26 05:46] LABS: INR 1.1 (0.9-1.3); Prothrombin Time 12.2 SECONDS (10.1-12.7)
[2022-09-26 05:49] LABS: PTT Partial Thromboplastin Tim 24 SECONDS (26-36)
[2022-09-26 05:52] LABS: BUN Creatinine Ratio 9.7 (6-22); Blood Urea Nitrogen 9 mg/dL (9-20); Carbon Dioxide 29 mmol/L (22-32); Chloride 108 mmol/L (98-107); Estimated Glomerular Filt Rate > 60 mL/min (>60); Glucose 97 mg/dL (70-100); HEMOLYSIS < 15 (0-50); Potassium 4.2 mmol/L (3.4-5.1); Sodium 143 mmol/L (137-145)
[2022-09-26] MEDS: SODIUM CHLORIDE 0.9% FLUSH 10 ML IV (08:23)
[2022-09-26] MEDS: PANTOPRAZOLE 40 MG VIAL IV (08:23)
--- NOTE | 2022-09-26 10:00 | DI.US.S_ITS ---
PROCEDURE: US ABDOMEN LIMITED INDICATIONS: LGI Bleed, Abd distention TECHNIQUE: Real-time focused scanning was performed of the abdomen, with image documentation. COMPARISON: None. FINDINGS: No free intraperitoneal fluid in the four quadrants. IMPRESSION: No free fluid. Dictated by: Rsoie Allen M.D. on 09/26/2022 at 11:15 Approved by: Rosie Allen M.D. on 09/26/2022 at 11:16
--- NOTE | 2022-09-26 10:11 | P.CONS_ITS ---
History of Present Illness Consult details Date Patient Seen: 09/26/22 Time Patient Seen: 10:11 Chief complaint: Lower GI Bleed Narrative: Samm is a 37-year-old man who presented to the emergency department yesterday with sudden onset of hematochezia and orthostatic symptoms. He was found to have a hemoglobin of 8.4. He has never had an EGD or colonoscopy before. He denies any recent constipation or straining with bowel movements. He denies taking frequent NSAIDs. Meds Home Medications and Allergies Home Medications Medication Instructions Recorded Confirmed Type omeprazole 20 mg capsule,delayed 20 mg PO BID 09/26/22 09/26/22 History release Allergies Allergy/AdvReac Type Severity Reaction Status Date / Time No Known Drug Allergies Allergy Verified 09/25/22 19:28 Exam Vital Signs (past 8 hours): - 09/26/22 03:00 09/26/22 07:30 09/26/22 08:50 Temperature 97.4 F L 98.0 F Pulse Rate 71 75 Pulse Rate [Orthostatic Lying] 65 Pulse Rate [Orthostatic Sitting] 69 Pulse Rate [Orthostatic Standing] 75 Respiratory Rate 14 21 Blood Pressure 114/73 99/56 L Blood Pressure [Orthostatic Lying] 103/50 L Blood Pressure [Orthostatic Sitting] 101/57 L Blood Pressure [Orthostatic Standing] 103/63 Pulse Oximetry 100 100 Oxygen Flow Rate 0 0 Oxygen Delivery Method Room Air Oxygen Flow Rate 0 Const General: healthy appearing and No acute distress Resp Effort & Inspection: normal respiratory effort Objective Labs 09/26/22 05:20 09/26/22 05:20 Labs: Laboratory Results - last 24 hr 09/25/22 09/25/22 09/25/22 19:35 19:35 19:35 WBC 6.4 RBC 2.89 L Hgb 8.5 L Hct 24.7 L MCV 85.5 MCH 29.4 MCHC 34.4 RDW 15.0 H Plt Count 222 Neut % (Auto) 54.6 Lymph % (Auto) 34.0 Armstrong % (Auto) 9.0 Eos % (Auto) 1.5 L Baso % (Auto) 0.9 Neut # (Auto) 3500 Lymph # (Auto) 2200 Armstrong # (Auto) 600 Eos # (Auto) 100 Baso # (Auto) 100 PT 11.5 INR 1.0 APTT 24 L Sodium 139 Potassium 3.8 Chloride 106 Carbon Dioxide 25 BUN 10 Creatinine 0.85 Estimated GFR > 60 BUN/Creatinine Ratio 11.8 Glucose 96 Calcium 8.7 Total Bilirubin 0.6 AST 34 ALT 35 Alkaline Phosphatase 37 L Total Protein 6.2 L Albumin 3.8 Globulin 2.4 Albumin/Globulin Ratio 1.6 SARS-CoV-2 (PCR) Blood Type Antibody Screen 09/25/22 09/25/22 09/26/22 19:35 21:10 05:20 WBC 5.9 RBC 2.84 L Hgb 8.4 L Hct 24.3 L MCV 85.9 MCH 29.6 MCHC 34.5 RDW 14.9 H Plt Count 224 Neut % (Auto) 62.3 Lymph % (Auto) 26.2 Armstrong % (Auto) 9.5 Eos % (Auto) 1.6 L Baso % (Auto) 0.4 Neut # (Auto) 3700 Lymph # (Auto) 1500 Armstrong # (Auto) 600 Eos # (Auto) 100 Baso # (Auto) 0 PT INR APTT Sodium Potassium Chloride Carbon Dioxide BUN Creatinine Estimated GFR BUN/Creatinine Ratio Glucose Calcium Total Bilirubin AST ALT Alkaline Phosphatase Total Protein Albumin Globulin Albumin/Globulin Ratio SARS-CoV-2 (PCR) Negative Blood Type A Negative Antibody Screen Negative 09/26/22 09/26/22 05:20 05:20 WBC RBC Hgb Hct MCV MCH MCHC RDW Plt Count Neut % (Auto) Lymph % (Auto) Armstrong % (Auto) Eos % (Auto) Baso % (Auto) Neut # (Auto) Lymph # (Auto) Armstrong # (Auto) Eos # (Auto) Baso # (Auto) PT 12.2 INR 1.1 APTT 24 L Sodium 143 Potassium 4.2 Chloride 108 H Carbon Dioxide 29 BUN 9 Creatinine 0.93 Estimated GFR > 60 BUN/Creatinine Ratio 9.7 Glucose 97 Calcium 9.0 Total Bilirubin AST ALT Alkaline Phosphatase Total Protein Albumin Globulin Albumin/Globulin Ratio SARS-CoV-2 (PCR) Blood Type Antibody Screen [facility] Medical History History of abdominal hernia Overweight (BMI 25.0-29.9) Surgical History (Updated 09/25/22 @ 23:54 by ABAD Robledo) Hx of hernia repair Family History (Updated 09/25/22 @ 23:55 by OSCAR Robledo-) Grandmother Diabetes mellitus Social History household members: spouse and children Tobacco & Substance Use Smoking Status: Never smoker alcohol intake: current substance use type: does not use Assessment & Plan Assessment and plan (1) Anemia: Status: Acute Plan 37-year-old man with new onset hematochezia and anemia. Recommend EGD and colonoscopy. We reviewed the risks and benefits and he would like to proceed.
--- NOTE | 2022-09-26 10:11 | PM.OP.COLON ---
Operative Date/Time/Diagnoses Date of procedure: 09/26/22 Time of procedure: 10:11 Pre-op diagnosis: Hematochezia and anemia Post-op diagnosis: same
[2022-09-26] MEDS: LACTATED RINGERS 1,000 ML 42 ML IV (10:35)
--- NOTE | 2022-09-26 11:16 | PM.OP.EC ---
Operative Date/Time/Diagnoses Date of procedure: 09/26/22 Time of procedure: 11:16 Pre-op diagnosis: Anemia and hematochezia Post-op diagnosis: other (Peptic ulcer in the pyloric channel) Procedure & Clinicians Study performed: EGD and colonoscopy Same procedure as scheduled: Yes Surgeon: Aaron Weems Procedure Notes Procedure in detail: Surgeon: Dawson Doshi MD Anesthesia: Aaron Weems MD Procedure in detail: A timeout was performed. A bite blocked was placed and monitors were attached to the patient. The patient was positioned in a left lateral decubitus position. Sedation was administered by Dr. Weems. Once the patient was sedated the endoscope was inserted through the bite block and passed through the esophagus and stomach and into the duodenum. Second portion of the duodenum appeared normal however there appeared to be a fresh ulcer in the pyloric channel which was not actively bleeding. We then withdrew the scope into the stomach. Random biopsies were taken from the antrum. No other abnormalities were visualized. The endoscope was retroflexed and no hiatal hernia was seen. The endoscope was straightned and withdrawn into the esophagus. No other abnormalities were seen in the esophagus. Findings: Pyloric channel ulcer Next we repositioned the patient for a colonoscopy. A digital rectal exam was performed and was normal. The colonoscope was inserted and advanced to the cecum. The appendiceal orifice was identified and photographed. The scope was slowly withdrawn over greater than 6 minutes. No abnormalities were seen. The scope was retroflexed in the rectum and abnormalities were found. Findings: Normal colon EBL: 5 mL Scope withdrawal time: 6 minutes Sedation minutes: 25 minutes Post-procedure Disposition: PACU
--- NOTE | 2022-09-26 13:29 | CM.DANOTE ---
Discharge Planning/Care Management CM Discharge Assessment Start: 09/26/22 13:24 Freq: Status: Active Protocol: Document 09/26/22 13:25 VARUN (Rec: 09/26/22 13:29 VARUN [id number]) Discharge Planning Assessment Assigned Admissions Dean TYLER Anthony DPOA/Assigned Designee Name Nadine Pollard, spouse Contact Information [phone] Advance Directives? No History Provided By Patient,Significant Other, Medical Record Prior Living Arrangements House Household Members spouse,children Type of transporation used prior to Drives own vehicle admit Independent with ADL's Yes Is patient alert and oriented? Yes Barriers to Discharge No Comment Patient is a 37 yo M indp, active [employer], admitted for GI bleed and scheduled for upper and lower scope, found to have a Peptic ulcer in the pyloric channel. Patient discharged home today w/spouse and recommendation for close outpatient follow up No needs from this CM team Discharge Plan Home Transportation Arrangement Spouse Referrals Initiated None needed
--- NOTE | 2022-09-26 14:42 | PM.DS.1 ---
History of Present Illness History of Present Illness Chief complaint: Lower GI Bleed Narrative: per history and physical: Samm Pollard is a healthy 37-year-old male with medical history of only a abdominal hernia repair in 2016, takes no medications is an active [employer] [place] member who presented to the ED on 09/22 for rectal bleeding given PPI and instructed to follow up outpatient with GI-H&H 01/26.? Patient had a large BM with tara bright red blood today, returned the ED H&H 12/24.? Guaiac positive for tara blood.? Patient has had a total of 2 tara formed bowel movements over the past 72 hours. Denies any medical history of GI issues, bleeding, obstruction, or diarrhea. Complains of epigastric abdominal pain and abdominal distention within the last 24 hours, dizziness while lying down worsens with standing, and shortness of breath with activity.? ?On admit patient denies chest pain, shortness in breath, headache, changes in vision, difficulty swallowing, speech impairment, weakness, numbness, tingling, difficulty with ambulation, recent falls, head injury, LOC, fever, body aches, chills, cough, recent exposure to illness, nausea, vomiting, urinary incontinence/retention, dysuria, frequency, urgency, hematuria,constipation, incontinence, rashes, recent changes to medication, illness, injury, or trauma. At the time of admit patient's vitals were stable, normotensive, h HGB 8.5/HCT 24.7, the rest of patient's labs are all WNL COVID is negative, patient is typed and crossed A negative blood type.? Patient admitted for observation for anemia secondary to lower GI bleed general surgery will take for colonoscopy tomorrow. Discharge Providers Provider Date of admission: 09/25/22 22:30 Discharge Date: 09/26/22 Primary care physician: Satn FERNANDEZ Provider Consults: 09/25/22 22:47 Consult to General Surgery Routine Comment: Consulting Provider: Evans Contreras Reason for consultation: Lower GI Bleed Has provider been notified: Yes 09/25/22 22:51 Consult to Dietitian, Adult Routine Comment: Reason For Exam: BMI 29.1 Discharge provider: Jeaneth Higuera MD Summary Hospital Course Discharge Diagnosis: 1. Acute blood loss anemia, stable 2. Pyloric ulcer Hospital Course: patient presented with complaints of black tarry stool on September 22, 2022. At that time he had a fairly mild anemia with a hemoglobin of 9.4. He was placed on a PPI and referred for outpatient endoscopy with General surgery. He returned to the emergency department on September 25 with complaints of dizziness and ongoing black/ tarry stools. Hemoglobin was down to 8.5. He was admitted for further care. He was placed on IV PPI and was made NPO for endoscopy. He did undergo colonoscopy prep as well. EGD revealed a pyloric channel ulcer. Colonoscopy was within normal limits. H pylori testing pending on the ulcer. Patient is tolerating an oral diet. Is dizziness has resolved. No orthostatic symptoms. Plan is to continue PPI b.i.d.. If H pylori testing is positive Dr. Doshi will contact him for further treatment. Will need a follow-up EGD in 2 months. He is discharged in stable condition. Status at Discharge Cognitive/behavioral status at discharge: at baseline, oriented Overall status at discharge: patient is progressing back to baseline Time Spent with Patient Time spent: Greater than 30 minutes ( 40 minutes spent in education/ coordinating of discharge) Exam Vital Signs (past 8 hours): - 09/26/22 07:30 09/26/22 08:50 09/26/22 10:33 Temperature 98.0 F 97.6 F Pulse Rate 75 67 Pulse Rate [Orthostatic Lying] 65 Pulse Rate [Orthostatic Sitting] 69 Pulse Rate [Orthostatic Standing] 75 Respiratory Rate 21 16 Blood Pressure 99/56 L 113/72 Blood Pressure [Orthostatic Lying] 103/50 L Blood Pressure [Orthostatic Sitting] 101/57 L Blood Pressure [Orthostatic Standing] 103/63 Pulse Oximetry 100 100 Oxygen Delivery Method Room Air Oxygen Flow Rate 0 09/26/22 11:17 09/26/22 11:20 09/26/22 11:25 Temperature 97.5 F L Pulse Rate 76 777 H 72 Pulse Rate [Orthostatic Lying] Pulse Rate [Orthostatic Sitting] Pulse Rate [Orthostatic Standing] Respiratory Rate 16 17 15 Blood Pressure 74/32 L 79/41 L 82/40 L Blood Pressure [Orthostatic Lying] Blood Pressure [Orthostatic Sitting] Blood Pressure [Orthostatic Standing] Pulse Oximetry 100 100 100 Oxygen Delivery Method Room Air Room Air Room Air Oxygen Flow Rate 09/26/22 11:30 09/26/22 11:35 09/26/22 11:41 Temperature Pulse Rate 67 63 74 Pulse Rate [Orthostatic Lying] Pulse Rate [Orthostatic Sitting] Pulse Rate [Orthostatic Standing] Respiratory Rate 17 16 14 Blood Pressure 81/40 L 86/47 L 109/69 Blood Pressure [Orthostatic Lying] Blood Pressure [Orthostatic Sitting] Blood Pressure [Orthostatic Standing] Pulse Oximetry 100 100 100 Oxygen Delivery Method Room Air Room Air Room Air Oxygen Flow Rate 09/26/22 11:58 Temperature 97.6 F Pulse Rate 70 Pulse Rate [Orthostatic Lying] Pulse Rate [Orthostatic Sitting] Pulse Rate [Orthostatic Standing] Respiratory Rate 20 Blood Pressure 107/64 Blood Pressure [Orthostatic Lying] Blood Pressure [Orthostatic Sitting] Blood Pressure [Orthostatic Standing] Pulse Oximetry 100 Oxygen Delivery Method Oxygen Flow Rate 0 Oxygen Delivery Method Room Air Oxygen Flow Rate 0 Narrative Exam Narrative: GEN: very pleasant adult male,Alert and oriented x 3, NAD HEENT:NC, Face symmetric CHEST: Respiratory excursions symmetric, CTAB CV: RRR, no M/R/G ABD: Soft, NT/ND, BT present in all 4 quadrants, no organomegaly or masses EXTR: warm, well perfused, no C/C/E SKIN: warm and dry, no rash NEURO: Alert and oriented x 3, nonfocal Objective Labs 09/26/22 05:20 09/26/22 05:20 Labs: Laboratory Results - last 24 hr 09/25/22 09/25/22 09/25/22 19:35 19:35 19:35 WBC 6.4 RBC 2.89 L Hgb 8.5 L Hct 24.7 L MCV 85.5 MCH 29.4 MCHC 34.4 RDW 15.0 H Plt Count 222 Neut % (Auto) 54.6 Lymph % (Auto) 34.0 [place] % (Auto) 9.0 Eos % (Auto) 1.5 L Baso % (Auto) 0.9 Neut # (Auto) 3500 Lymph # (Auto) 2200 [place] # (Auto) 600 Eos # (Auto) 100 Baso # (Auto) 100 PT 11.5 INR 1.0 APTT 24 L Sodium 139 Potassium 3.8 Chloride 106 Carbon Dioxide 25 BUN 10 Creatinine 0.85 Estimated GFR > 60 BUN/Creatinine Ratio 11.8 Glucose 96 Calcium 8.7 Total Bilirubin 0.6 AST 34 ALT 35 Alkaline Phosphatase 37 L Total Protein 6.2 L Albumin 3.8 Globulin 2.4 Albumin/Globulin Ratio 1.6 SARS-CoV-2 (PCR) Blood Type Antibody Screen 09/25/22 09/25/22 09/26/22 19:35 21:10 05:20 WBC 5.9 RBC 2.84 L Hgb 8.4 L Hct 24.3 L MCV 85.9 MCH 29.6 MCHC 34.5 RDW 14.9 H Plt Count 224 Neut % (Auto) 62.3 Lymph % (Auto) 26.2 [place] % (Auto) 9.5 Eos % (Auto) 1.6 L Baso % (Auto) 0.4 Neut # (Auto) 3700 Lymph # (Auto) 1500 [place] # (Auto) 600 Eos # (Auto) 100 Baso # (Auto) 0 PT INR APTT Sodium Potassium Chloride Carbon Dioxide BUN Creatinine Estimated GFR BUN/Creatinine Ratio Glucose Calcium Total Bilirubin AST ALT Alkaline Phosphatase Total Protein Albumin Globulin Albumin/Globulin Ratio SARS-CoV-2 (PCR) Negative Blood Type A Negative Antibody Screen Negative 09/26/22 09/26/22 05:20 05:20 WBC RBC Hgb Hct MCV MCH MCHC RDW Plt Count Neut % (Auto) Lymph % (Auto) [place] % (Auto) Eos % (Auto) Baso % (Auto) Neut # (Auto) Lymph # (Auto) [place] # (Auto) Eos # (Auto) Baso # (Auto) PT 12.2 INR 1.1 APTT 24 L Sodium 143 Potassium 4.2 Chloride 108 H Carbon Dioxide 29 BUN 9 Creatinine 0.93 Estimated GFR > 60 BUN/Creatinine Ratio 9.7 Glucose 97 Calcium 9.0 Total Bilirubin AST ALT Alkaline Phosphatase Total Protein Albumin Globulin Albumin/Globulin Ratio SARS-CoV-2 (PCR) Blood Type Antibody Screen [facility] Medical History History of abdominal hernia Overweight (BMI 25.0-29.9) Surgical History (Updated 09/25/22 @ 23:54 by ABAD Robledo) Hx of hernia repair Family History (Updated 09/25/22 @ 23:55 by ABAD Robledo) Grandmother Diabetes mellitus Social History household members: spouse and children Smoking Status: Never smoker alcohol intake: current substance use type: does not use Discharge Plan Discharge Plan Patient Disposition: Home Provider Discharge Comment: You were diagnosed with a pyloric ulcer (stomach). H pylori testing is pending. If you test positive, you will need a cocktail of medications to treat the h pylori. Dr. Doshi's office should call you with results. Take omeprazole 20 mg twice daily [place] Then take pantoprazole 40 mg twice daily x 30 days, then change to once daily until you have your follow-up endoscopy. Dr. Doshi recommends a follow-up endoscopy in 2 months. Recommendations: Eat a nutritious diet to improve your anemia take over the counter iron supplement once daily for 30 days (this will make your stool dark) Consider a multivitamin for the next couple of months Avoid: alcohol, tobacco products, aspirin, ibuprofen, or naproxen Take tylenol for pain Return to the ED: black tarry stool or vomit that looks like coffee grounds or bright red blood or clots in stool increasing abdominal pain Worsening lightheadedness, shortness of breath, or chest pain Discharge orders & Medications Prescriptions: New pantoprazole 40 mg tablet,delayed release (DR/EC) 40 mg PO BID Qty: 60 0RF Discontinued omeprazole 20 mg Capsule,Delayed Release(Dr/Ec) 20 mg PO BID Follow up/Referrals: ProviderStan [Primary Care Provider] - Diet/Activity/Treatments Diet: Diet as Tolerated and Regular Activity: As tolerated Oxygen: N/A Visit Report/Discharge Packet Instructions: Anemia, DI for Gastric Ulcer, Gastrointestinal Bleeding Stand Alone Forms: Patient Portal/API, Stroke Signs & Symptoms Discharge Data Primary Care Provider: Stan Golden Discharges patient from system. Discharge Date/Time: 09/26/22 13:40
[2022-09-30 13:36] LABS: H. Pylori Antigen Stool Positive (Negative)
== END 2022-09-26 13:40 | disposition home or self-care (01) ==
LOC: ED 20:12 → AC 22:54
PROVIDERS: Surgery; Admitting Provider Nurse Practitioner Family; Emergency Provider Emergency Medicine; Referring Provider Emergency Medicine; Visit Provider Nurse Practitioner Family
PROC: 0DJ08ZZ Inspection of Upper Intestinal Tract, Via Natural or Artificial Opening Endoscopic (ICD-10-PCS; CPT 43235; principal; 2022-09-26 11:30)
PROC: 0DJD8ZZ Inspection of Lower Intestinal Tract, Via Natural or Artificial Opening Endoscopic (ICD-10-PCS; CPT 45378; 2022-09-26 11:30)
DX: K25.9 Gastric ulcer, unspecified as acute or chronic, without hemorrhage or perforation (principal); R42 Dizziness and giddiness; D62 Acute posthemorrhagic anemia; Z20.822 Contact with and (suspected) exposure to COVID-19; E66.3 Overweight; Z68.29 Body mass index [BMI] 29.0-29.9, adult
CPT/HCPCS: 43239; 45378; 36415; 76705; 80048; 80053; 85025; 85610; 85730; 86850; 86900; 86901; 87338; 87635; 93005; 93010; 96374; 96376; 99232; 99284; C9803; G0378; C9113; J2704; J3010